=== PATIENT | female | born 1975 | race Caucasian/White ===

== ENCOUNTER 2020-08-24 10:32 | Emergency (ER) | payer MEDICAID, SELFPAY ==
[2020-08-24 19:22] VITALS: BP 000/00; PULSE 0; RESP 0; TEMP -17.7; TEMP 0; O2SAT 0
== END 2020-08-24 20:41 | disposition home or self-care (01) ==
LOC: UTC 10:36
PROVIDERS: Emergency Provider Nurse Practitioner; PCP Internal Medicine
DX: Z53.21 Procedure and treatment not carried out due to patient leaving prior to being seen by health care provider (principal); M25.562 Pain in left knee

== ENCOUNTER 2021-08-13 14:21 | Emergency (ER) | payer MEDICAID, SELFPAY ==
[2021-08-13 15:00] VITALS: BP 147/83; PULSE 95; RESP 18; TEMP 36.8; O2SAT 98; BMI 21.6
--- NOTE | 2021-08-13 15:48 | HMH.EDUTC ---
[facility] [place] Disposition Clinical Impression: Facial cellulitis Disposition: Home, Self-Care Condition on Discharge: Good Instructions: Cellulitis Additional Instructions: Keep the affected area clean and dry. Follow up with your regular doctor. Take the antibiotics as directed and apply the topical antibiotics as directed. Apply warm wet compresses to the affected area three or four times per day. GO TO THE ER FOR ANY WORSENING SYMPTOMS Follow up with your primary care physician in 3 days for a recheck and to go over the culture report from the swab we took today. The culture may tell what bacteria is causing this and you may be able to stop one of the antibiotics. Prescriptions: Sulfamethoxazole/Trimethoprim [Bactrim DS tablet] 1 each PO BID 10 Days #20 tab Transmission Status: Received by [facility] Mupirocin [Bactroban 2% Ointment 22gm tube] 1 applicatio TP TID 7 Days #1 gm Transmission Status: Received by [facility] cephALEXin [cephALEXin 500mg capsule] 500 mg PO Q6H 10 Days #40 cap Transmission Status: Received by [facility] Referrals: Clifford Reynolds MD [Primary Care Provider] - Time of Disposition: 16:39 Medical Decision Making - Medical Records Medical records reviewed: No: I reviewed the patient's medical records. - Mike Inquiry Pt receiving controlled substance: No Vital Signs: 08/13/21 15:00 08/13/21 16:24 Temperature 98.3 F 98.3 F Temperature Source Oral Pulse Rate 95 H Pulse Rate [Right Brachial] 95 H Respiratory Rate 18 18 Blood Pressure 147/83 H Blood Pressure [Right Arm] 147/83 H Blood Pressure Mean [Right Arm] 104 Blood Pressure Source [Right Arm] Automatic Cuff Blood Pressure Position [Right Arm] Sitting 02 Sat by Pulse Oximetry 98 Oxygen Delivery Method Room Air - Lab Data Lab results reviewed: Yes: I reviewed the patient's lab results. Orders (Tests/Meds): ED MEDICATIONS Discontinued Medications Generic Name Dose Route Start Last Admin Trade Name Freq PRN Reason Stop Dose Admin Ceftriaxone Sodium 1 gm 08/13/21 16:17 08/13/21 16:20 Ceftriaxone 1gm Vial IM 08/13/21 16:18 1 gm ONCE ONE Administration Lidocaine HCl 0 ml 08/13/21 16:17 08/13/21 16:20 Lidocaine 1% 5ml Pf Vial IM 08/13/21 16:18 2 ml ONCE ONE Administration Methylprednisolone Sodium Succinate 125 mg 08/13/21 16:17 08/13/21 16:20 Methylprednisolone Sod Succ 125mg Vial IM 08/13/21 16:18 125 mg ONCE ONE Administration ORDERS Category Date Time Status Wound Culture and Gram Stain Stat Micro 08/12/21 17:00 Results [facility] HPI - General Stated complaint: bite on forehead Time Seen by Provider: 08/13/21 15:49 Mode of Arrival: Ambulatory Source of Information: Patient Limitations: No Limitations Description of Symptoms (Recalled from Triage Doc. by RN): PATIENT C/O BUG BITE TO FOREHEAD WITH DRAINAGE AND REDNESS AROUND THE AREA HEENT Symptoms (Recalled from RN notes): Yes Resp Symptoms (Recalled from RN notes): No Skin Symptoms (Recalled from RN notes): Yes MS Symptoms (Recalled from RN notes): No Functional Status (Recalled from RN notes): WNL - History of Present Illness Provider Complaint: She states that since this morning she has had a red tender area on her forehead. She denies any injury. She states that last night she noticed she had a small place and she thought she was getting a pimple. Today, it is much worse. She denies any fever or chills. - Related Data Previous Rx's Medication Instructions Recorded Mupirocin [Bactroban 2% Ointment 1 applicatio TP TID 7 Days #1 gm 08/13/21 22gm tube] Sulfamethoxazole/Trimethoprim 1 each PO BID 10 Days #20 tab 08/13/21 [Bactrim DS tablet] cephALEXin [cephALEXin 500mg 500 mg PO Q6H 10 Days #40 cap 08/13/21 capsule] Allergies Allergy/AdvReac Type Severity Reaction Status Date / Time No Known Allergies Allergy Verified 05/13/19 11:41
[2021-08-13 16:24] VITALS: BP 147/83; PULSE 95; RESP 18; TEMP 36.8; O2SAT 98
== END 2021-08-13 16:44 | disposition home or self-care (01) ==
PROVIDERS: Emergency Provider Nurse Practitioner Family; PCP Internal Medicine
DX: L03.211 Cellulitis of face (principal)
CPT/HCPCS: 87070; 87077; 87186; 87205; 96372; 99202; G0463

== ENCOUNTER 2021-08-15 09:21 | Emergency (ER) | payer MEDICAID, SELFPAY ==
[2021-08-15 09:25] VITALS: BP 128/84; PULSE 78; RESP 16; TEMP 36.9; O2SAT 98; BMI 23.6
--- NOTE | 2021-08-15 10:15 | HMH.EDUTC ---
[facility] [place] Clinical Impression: Allergic reaction Qualifiers: Encounter type: initial encounter Qualified Code(s): T78.40XA - Allergy, unspecified, initial encounter Disposition: Home, Self-Care Condition on Discharge: Good Additional Instructions: Stop taking the other antibiotics as we are unsure if you may be allergic to one of them Follow up with your Family Doctor if no improvement or any worsening of symptoms Return if needed Straight to ER if any life threatening symptoms Go straight to ER if cellulitis worsens or spreads or worsens Prescriptions: clindamycin HCL [Clindamycin HCl] 300 mg PO Q8H 10 Days #30 cap Transmission Status: Received by [id number] Referrals: Clifford Reynolds MD [Primary Care Provider] - As needed Time of Disposition: 10:58 Medical Decision Making - Mike Inquiry Pt receiving controlled substance: No Mike was queried for this patient: No Vital Signs: 08/15/21 09:25 08/15/21 10:39 Temperature 98.4 F 98.4 F Temperature Source Oral Pulse Rate 78 Pulse Rate [Right Brachial] 78 Respiratory Rate 16 16 Blood Pressure 128/84 Blood Pressure [Right Arm] 128/84 Blood Pressure Mean [Right Arm] 98 Blood Pressure Source [Right Arm] Automatic Cuff Blood Pressure Position [Right Arm] Sitting 02 Sat by Pulse Oximetry 98 Oxygen Delivery Method Room Air Orders (Tests/Meds): ED MEDICATIONS Discontinued Medications Generic Name Dose Route Start Last Admin Trade Name Freq PRN Reason Stop Dose Admin Famotidine 20 mg 08/15/21 10:19 08/15/21 10:32 Famotidine 20mg Tablet PO 08/15/21 10:20 20 mg ONCE ONE Administration Loratadine 10 mg 08/15/21 10:20 08/15/21 10:30 Loratadine 10mg Tablet PO 08/15/21 10:21 10 mg ONCE ONE Administration Methylprednisolone Sodium Succinate 125 mg 08/15/21 10:19 08/15/21 10:32 Methylprednisolone Sod Succ 125mg Vial IM 08/15/21 10:20 125 mg ONCE ONE Administration Medical Decision Narrative: Swelling noted around eyes and in cheek areas with urticaria like welps noted on eyelids Swelling in forehead much improved but due to patient unable to distinguish if it was the antibiotics or her touching her face with cleaning solution on hands will change medication to Clindamycin and have her follow up with PCP or straight to ER if no improvement Redness and swelling in eyes much improved after medication, medication discussed with pharmacy and will stop the bactrim and cephalexin and start her on Clindamycin [facility] [place] - General Stated complaint: bilateral eye swelling Time Seen by Provider: 08/15/21 10:15 Mode of Arrival: Ambulatory Source of Information: Patient Limitations: No Limitations Description of Symptoms (Recalled from Triage Doc. by RN): PATIENT C/O SWELLING TO EYES AND NOSE X 3 DAYS. HAS BEEN ON CEPHALEXIN AND BACTRIM SINCE MONDAY FOR CELLULITIS HEENT Symptoms (Recalled from RN notes): Yes Resp Symptoms (Recalled from RN notes): No Skin Symptoms (Recalled from RN notes): No MS Symptoms (Recalled from RN notes): No Functional Status (Recalled from RN notes): WNL - History of Present Illness Provider Complaint: Patient states that she was seen on Monday due to cellulitis from bug bite on her forehead States that she was given a couple shots and started on oral antibiotics and it looked much better yesterday States that she was cleaning and took her antibiotics and her face was itching and she noticed she was having welps on her face and on her eyelids States that she took Benadryl and it helped with the itching but still having welps and swelling States that she thinks she is having an allergic reaction to something - Related Data Previous Rx's Medication Instructions Recorded Mupirocin [Bactroban 2% Ointment 1 applicatio TP TID 7 Days #1 gm 08/13/21 22gm tube] Sulfamethoxazole/Trimethoprim 1 each PO BID 10 Days #20 tab 08/13/21 [Bactrim DS tablet] cephALEXin [cephALEXin
[2021-08-15 10:39] VITALS: BP 128/84; PULSE 78; RESP 16; TEMP 36.9; O2SAT 98
== END 2021-08-15 11:03 | disposition home or self-care (01) ==
PROVIDERS: Emergency Provider Nurse Practitioner; PCP Internal Medicine
DX: T78.40XA Allergy, unspecified, initial encounter (principal); L03.211 Cellulitis of face
CPT/HCPCS: 96372; 99202; G0463

== ENCOUNTER 2021-09-19 11:14 | Emergency (ER) | payer MEDICAID, SELFPAY ==
[2021-09-19 13:22] VITALS: BP 126/81; PULSE 74; RESP 18; TEMP 36.7; O2SAT 99; BMI 21.9
[2021-09-19 13:27] LABS: Apearance,Urine Turbid (Clear); Color,Urine Dark Yellow (Yellow)
[2021-09-19 13:28] LABS: Bilirubin,Urine Negative (Negative); Blood, Urine 3+ (Negative); Glucose,Urine (UA) Negative (Negative); Ketones,Urine Negative (Negative); Protein,Urine 2+ (Negative); Specific Gravity, Urine 1.025 (1.005-1.030); UTC Leukocyte Esterase,Urine 1+ (Negative); UTC Nitrate,Urine Negative (Negative); Urobilinogen,Urine 1 EU/dl (0.2)
--- NOTE | 2021-09-19 13:55 | HMH.EDUTC ---
[facility] [place] Disposition Clinical Impression: UTI (urinary tract infection) Qualifiers: Urinary tract infection type: site unspecified Hematuria presence: with hematuria Qualified Code(s): N39.0 - Urinary tract infection, site not specified; R31.9 - Hematuria, unspecified Disposition: Home, Self-Care Condition on Discharge: Good Instructions: Urinary Tract Infection, DI for Urinary Tract Infection (UTI), Phenazopyridine Additional Instructions: Drink plenty of fluids. Take tylenol or ibuprofen for pain or fever. Take the medications as directed. Follow up with your regular doctor. GO TO THE ER FOR ANY WORSENING SYMPTOMS The pyridium will make your urine turn orange, this is an expected side effect. It will stain your clothes if it comes into contact with them. Prescriptions: Ondansetron [Zofran 4mg ODT] 4 mg PO Q8HP PRN #20 tab PRN Reason: Nausea Transmission Status: Pending to [facility] Nitrofurantoin Monohyd/M-Cryst [Macrobid 100 mg Capsule] 100 mg PO BID 5 Days #10 cap Transmission Status: Pending to [facility] Phenazopyridine HCl [Pyridium 200mg Tablet] 200 pow PO TID #6 tab Transmission Status: Pending to [facility] Referrals: Bear Olivares MD [Primary Care Provider] - Time of Disposition: 13:59 Medical Decision Making - Medical Records Medical records reviewed: No: I reviewed the patient's medical records. - Mike Inquiry Pt receiving controlled substance: No Vital Signs: 09/19/21 13:22 Temperature 98.1 F Temperature Source Oral Pulse Rate [Left] 74 Respiratory Rate 18 Blood Pressure [Right Arm] 126/81 Blood Pressure Mean [Right Arm] 96 02 Sat by Pulse Oximetry 99 - Lab Data Lab results reviewed: Yes: I reviewed the patient's lab results. Lab Results 09/19/21 13:26: Urine Color Dark yellow, Urine Appearance Turbid, Urine pH 7.0, Ur Specific [place] 1.025, Urine Protein 2+, Urine Glucose (UA) Negative, Urine Ketones Negative, Urine Blood 3+, Urine Nitrate Negative, Urine Bilirubin Negative, Urine Urobilinogen 1, Ur Leukocyte Esterase 1+ A Orders (Tests/Meds): ORDERS Category Date Time Status Urine Culture Stat Micro 09/19/21 13:26 Ordered [facility] [place] HPI - General Stated complaint: painful urniation Time Seen by Provider: 09/19/21 13:55 Mode of Arrival: Ambulatory Source of Information: Patient Limitations: No Limitations Description of Symptoms (Recalled from Triage Doc. by RN): pt c/o burning with urination since today. HEENT Symptoms (Recalled from RN notes): No Resp Symptoms (Recalled from RN notes): No Skin Symptoms (Recalled from RN notes): No MS Symptoms (Recalled from RN notes): No Functional Status (Recalled from RN notes): wnl - History of Present Illness Provider Complaint: She states that she has been having dysuria, urinary frequency and urgency since yesterday. She denies any fever or chills. She does get uti's occasionally and that is what she feels like is going on now. - Related Data Previous Rx's Medication Instructions Recorded Mupirocin [Bactroban 2% Ointment 1 applicatio TP TID 7 Days #1 gm 08/13/21 22gm tube] Sulfamethoxazole/Trimethoprim 1 each PO BID 10 Days #20 tab 08/13/21 [Bactrim DS tablet] cephALEXin [cephALEXin 500mg 500 mg PO Q6H 10 Days #40 cap 08/13/21 capsule] clindamycin HCL [Clindamycin HCl] 300 mg PO Q8H 10 Days #30 cap 08/15/21 Nitrofurantoin Monohyd/M-Cryst 100 mg PO BID 5 Days #10 cap 09/19/21 [Macrobid 100 mg Capsule] Ondansetron [Zofran 4mg ODT] 4 mg PO Q8HP PRN #20 tab 09/19/21 Phenazopyridine HCl [Pyridium 200 pow PO TID #6 tab 09/19/21 200mg Tablet] Allergies Allergy/AdvReac Type Severity Reaction Status Date / Time No Known Allergies Allergy Verified 05/13/19 11:41 - Worker's Comp Is this a Worker's Comp case?: No [facility] History - Hepatitis A Screen Drug use history?: No High risk sexual behaviors?: No History of
[2021-09-19 14:19] VITALS: BP 126/81; PULSE 74; RESP 18; TEMP 36.7
== END 2021-09-19 14:20 | disposition home or self-care (01) ==
PROVIDERS: Emergency Provider Nurse Practitioner Family; PCP Internal Medicine Adolescent Medicine
DX: N30.01 Acute cystitis with hematuria (principal); B96.20 Unspecified Escherichia coli [E. coli] as the cause of diseases classified elsewhere
CPT/HCPCS: 81003; 87086; 87088; 87186; 99202; G0463

== ENCOUNTER → 2021-09-21 10:45 | Outpatient (CLI) | payer MEDICAID, SELFPAY ==
[2021-09-21 11:37] LABS: Basophils # 0.1 K/mm3 (0-0.2); Basophils % 0.9 % (0.1-2.0); Eosinophils # 0.1 K/mm3 (0.0-0.4); Eosinophils % 0.7 % (0.1-12.0); Hematocrit 45.5 % (37.0-47.0); Hemoglobin 14.8 g/dL (12.2-16.2); Lymphocytes # 2.1 K/mm3 (0.7-4.5); Lymphocytes % 32.4 % (10-50); Mean Corpuscular HGB Conc 32.6 g/dL (31.8-35.4); Mean Corpuscular Hemoglobin 30.6 pg (27.0-31.2); Mean Corpuscular Volume 93.9 fl (81-99); Mean Platelet Volume 9.9 fl (7.4-10.4); Monocytes # 0.3 K/mm3 (0.1-1.0); Neutrophils # 3.9 K/mm3 (1.8-7.8); Neutrophils % 60.9 % (37.0-80.0); Platelet Count 226 K/mm3 (142-424); Red Blood Count 4.84 M/mm3 (4.20-5.40); Red Cell Distribution Width 12.9 % (11.5-17.5); White Blood Count 6.4 K/mm3 (4.8-10.8)
[2021-09-21 12:21] LABS: 25-OH Vitamin D, Total 59.1 ng/mL (30-100)
[2021-09-21 12:33] LABS: Thyroid Stimulating Hormone 1.71 uIU/mL (0.465-4.68)
[2021-09-21 12:52] LABS: Vitamin B12 252 pg/mL (239-931)
[2021-09-22 08:37] LABS: FSH 14.2 mIU/mL (.)
== END ==
DX: N95.1 Menopausal and female climacteric states (principal)
CPT/HCPCS: 36415; 82306; 82607; 83001; 84443; 85025

== ENCOUNTER → 2021-10-21 12:39 | Outpatient (CLI) | payer MEDICAID, SELFPAY | PROVIDERS: Visit Provider Nurse Practitioner Family | DX: R30.0 Dysuria (principal); B96.20 Unspecified Escherichia coli [E. coli] as the cause of diseases classified elsewhere | CPT/HCPCS: 87086; 87088; 87186 ==

== ENCOUNTER 2024-07-07 22:53 | Emergency (ER) | payer MEDICAID, SELFPAY ==
[2024-07-07 23:01] VITALS: BP 139/90; PULSE 95; RESP 20; TEMP 36.9; O2SAT 100; BMI 19.1
--- NOTE | 2024-07-07 23:14 | XR_ITS ---
PROCEDURE INFORMATION: Exam: XR Left Knee Exam date and time: 07/07/2024 11:13 PM Age: 48 years old Clinical indication: Injury or trauma; Fall; Patella or knee; Left; Severity of dislocation not specified; Additional info: Knee injury, swelling TECHNIQUE: Imaging protocol: Radiologic exam of the left knee. Views: 3 views. COMPARISON: CR XR PATELLA LT 2V 07/07/2024 11:13 PM FINDINGS: Bones/joints: There is a large joint effusion. There is patella [place]. No acute fracture or dislocation is identified. Soft tissues: Normal. IMPRESSION: There is a large joint effusion.
--- NOTE | 2024-07-07 23:14 | XR_ITS ---
PROCEDURE INFORMATION: Exam: XR Left Knee Exam date and time: 07/07/2024 11:13 PM Age: 48 years old Clinical indication: Injury or trauma; Fall; Patella or knee; Left; Severity of dislocation not specified; Additional info: Patellar disocation, reduced TECHNIQUE: Imaging protocol: Radiologic exam of the left knee. Views: 1 or 2 views. COMPARISON: CR XR KNEE LT 3V 07/07/2024 11:13 PM FINDINGS: Bones/joints: There is patella [place] without a discrete fracture identified. Soft tissues: Normal. IMPRESSION: There is patella [place] without a discrete fracture identified.
--- NOTE | 2024-07-07 23:16 | HMH.EDGENADL ---
Discharge Plan Disposition Patient Disposition: Home, Self-Care Prescriptions Prescriptions: No Action sulfamethoxazole-trimethoprim 1 EACH tablet 1 each PO BID 10 Days Qty: 20 0RF cephalexin 500 MG capsule 500 mg PO Q6H 10 Days Qty: 40 0RF mupirocin 22 GM ointment 1 applicatio TP TID 7 Days Qty: 1 0RF phenazopyridine 200 MG tablet 200 pow PO TID Qty: 6 0RF ondansetron 4 MG tablet,disintegrating 4 mg PO Q8HP PRN (Reason: Nausea) Qty: 20 0RF nitrofurantoin monohyd/m-cryst 100 MG capsule 100 mg PO BID 5 Days Qty: 10 0RF phenazopyridine [Pyridium] 200 mg tablet 200 mg PO Q8H 2 Days Qty: 6 0RF ondansetron 4 mg Tablet,Disintegrating 4 mg PO Q8H PRN (Reason: Nausea) Qty: 10 0RF nitrofurantoin monohyd/m-cryst [Macrobid] 100 mg Capsule 100 mg PO BID Qty: 10 0RF Rx Instructions: must administer with a meal/food clindamycin HCl 300 MG capsule 300 mg PO Q8H 10 Days Qty: 30 0RF Referrals Follow up/Referrals: Gilles Nolen DO [Staff Physician] - See instructions Bear Olivares MD [Primary Care Provider] - See instructions Activity Restrictions/Add. Instructions Additional Instructions/Restrictions: Please follow-up with your primary care provider and with our orthopedist. Recommend keeping the knee immobilizer in place until follow-up to help prevent further dislocation. please return to the emergency department if you develop any new or worsening symptoms or become concerned for your health. Clinical Impressions Clinical Impression: Effusion of knee joint, left, Knee strain Closed dislocation of left patella Qualifiers: Encounter type: initial encounter Qualified Code(s): S83.005A - Unspecified dislocation of left patella, initial encounter Stand Alone Forms Stand Alone Forms: Work/School Release Print Language Print Language: Czech Discharge ED Provider: Rocael Cardenas Adult HPI General Chief complaint: Extremity Injury, Lower Stated complaint: AO 10-20 left knee pain Time Seen by Provider: 07/07/24 23:00 Mode of Arrival: Ambulatory Source of Information: Patient Limitations: No Limitations Description of Symptoms (Recalled from ER Triage Doc. by RN): Pt ambulated to ED with cc of left knee pain. Pt states she dislocated the knee and can not pop it back in place. Pt states she has dislocated it before but normally doesn't have pain. Pt states she was playing with kids when she twisted her knee. Pt states the pain is 8 out of 10. History of Present Illness HPI narrative: 48-year-old female with history of prior patellar dislocations presents with patellar dislocation. She reports that it dislocated laterally this time which is abnormal for her. She reports that she was roughhousing with her children. She reports that she popped back in and was able to bear weight afterwards. She has since developed more significant knee swelling that she normally does and it hurts to move the knee. She is concerned that something else could be going on. Related Data Previous Rx's ?Medication ?Instructions ?Recorded cephalexin 500 mg capsule 500 mg PO Q6H 10 days #40 caps 08/13/21 mupirocin 2 % topical ointment 1 applicatio TP TID 7 days ##1 08/13/21 sulfamethoxazole 800 1 each PO BID 10 days #20 tabs 08/13/21 mg-trimethoprim 160 mg tablet clindamycin HCl 300 mg capsule 300 mg PO Q8H 10 days #30 caps 08/15/21 nitrofurantoin 100 mg PO BID 5 days #10 caps 09/19/21 monohydrate/macrocrystals 100 mg capsule ondansetron 4 mg disintegrating 4 mg PO Q8HP PRN Nausea #20 tabs 09/19/21 tablet phenazopyridine 200 mg tablet 200 pow PO TID #6 tabs 09/19/21 nitrofurantoin 100 mg PO BID #10 caps 05/20/24 monohydrate/macrocrystals 100 mg capsule (Macrobid) ondansetron 4 mg disintegrating 4 mg PO Q8H PRN Nausea #10 tabs 05/20/24 tablet phenazopyridine 200 mg tablet 200 mg PO Q8H 2 days #6 tabs 05/20/24 (Pyridium) Allergies Allergy/AdvReac Type Severity Reaction Status Date / Time No Known Allergies Allergy Verified 05/20/24 10:43 [facility] Disclaimer: The information contained in this section may have been updated after the patient was seen, as this information can be updated by other users. Social History Smoking Status: Never smoker alcohol intake: never current occupational status: employed Travel in the last 8 weeks: None ROS Obtained: Yes All systems reviewed & no additional complaints except as documented Physical Exam General General appearance: alert and in no apparent distress Head Head exam: atraumatic and normocephalic Eye Eye exam: Present normal appearance, PERRL and EOMI ENT ENT exam: Present normal oropharynx and normal external ear exam Neck Neck exam: Present normal inspection and full ROM Chest Chest inspection: Present normal inspection and symmetric chest wall rise; Absent tenderness Respiratory Respiratory exam: Present normal lung sounds bilaterally; Absent respiratory distress Cardiovascular Cardiovascular exam: Present regular rate and normal rhythm Abdominal Exam Abdominal exam: Present soft; Absent distention, tenderness or guarding Extremities Exam Extremities exam: Present joint swelling (Moderate left knee effusion, patellar is appropriately located, quadriceps and patellar tendon intact, pain with range of motion of the knee. Distal neurovascular status normal.); Absent edema Back Exam Back exam: Present normal inspection; Absent tenderness Neurological Exam Neurological exam: Present alert and oriented X3; Absent motor sensory deficit Psychiatric Psychiatric exam: Present normal affect and normal mood Skin Skin exam: Present warm, dry and normal color Lymphatic Lymphatic Findings: no adenopathy Medical Decision Making Medical Records Medical records reviewed: Yes I reviewed the patient's medical records. Screening: Per USPSTF and CDC recommendations, given the prevalence of disease in our region, it is our hospital?s policy to screen for HIV and viral Hepatitis for all patients aged 18 and over and those with ongoing risk factors. Mike Inquiry Pt receiving controlled substance: No Mike was queried for this patient: No Vital Signs: 07/07/24 23:01 07/08/24 01:41 Temperature 98.4 F 98.4 F Temperature Source Oral Oral Pulse Rate 75 Pulse Rate [Left Radial] 95 H Respiratory Rate 20 20 Blood Pressure 107/78 L Blood Pressure [Right Arm] 139/90 Blood Pressure Mean [Right Arm] 106 Blood Pressure Source Automatic Cuff Blood Pressure Source [Right Arm] Automatic Cuff Blood Pressure Position Sitting 02 Sat by Pulse Oximetry 100 Oxygen Delivery Method Room Air Room Air Lab Data Lab results reviewed: Yes I reviewed the patient's lab results. Orders (Tests/Meds): ED MEDICATIONS Discontinued Medications Generic Name Dose Route Start Last Admin Trade Name Freq PRN Reason Stop Dose Admin Acetaminophen 1,000 mg 07/07/24 23:16 07/07/24 23:31 Acetaminophen 500mg Tab PO 07/07/24 23:17 1,000 mg ONCE ONE Administration Ibuprofen 600 mg 07/07/24 23:16 07/07/24 23:31 Ibuprofen 600 Mg Tablet PO 07/07/24 23:17 600 mg ONCE ONE Administration ORDERS Category Date Time Status Knee XR left 3 views [XR knee LT 3V] Stat Exams 07/07/24 23:14 Completed Patella XR left 2 views [XR patella LT 2V] Stat Exams 07/07/24 23:14 Completed Medical Decision Narrative: 48-year-old female with history of patellar dislocations in the past presents with a left lateral patellar dislocation that she reduced prior to arrival. She is concerned about worsening swelling and pain in the knee. History was obtained via interactive discussion with patient, family. On arrival, patient is [afebrile, hemodynamically stable, satting appropriately, alert, oriented x4, GCS 15], moving all extremities spontaneously. Full physical exam performed and significant for left knee effusion, intact distal neurovascular exam, intact quadriceps and patellar tendon exam Differential includes but is not limited to fracture, dislocation, meniscal/ligamentous injury. Patient was given Tylenol and ibuprofen for symptomatic management and correction of underlying abnormalities. Workup initiated including radiographs of the left knee and patella. On re-evaluation, patient [remains afebrile, HD stable.] Imaging independently interpreted by me and significant for no apparent fracture or dislocation. It does show a large joint effusion and a somewhat high riding patella. See radiology read for full review of final results. Given patient history, exam and workup, patient's presentation most likely represents knee effusion from patellar dislocation. Patient was discharged in stable condition in a knee immobilizer with instructions to follow-up with Ortho. Procedures Risk/Benefits of Procedure(s) Were Explained: Yes Critical Care Critical Care Time Critical Care Time: No
[2024-07-07] MEDS: ACETAMINOPHEN 500MG TAB 1000 MG PO (23:31)
[2024-07-07] MEDS: IBUPROFEN 600 MG TABLET PO (23:31)
[2024-07-08 01:41] VITALS: BP 107/78; PULSE 75; RESP 20; TEMP 36.9; O2SAT 95
== END 2024-07-08 01:43 | disposition home or self-care (01) ==
PROVIDERS: Emergency Provider Emergency Medicine; PCP Internal Medicine Adolescent Medicine
DX: S83.005A Unspecified dislocation of left patella, initial encounter (principal); S86.919A Strain of unspecified muscle(s) and tendon(s) at lower leg level, unspecified leg, initial encounter; M25.562 Pain in left knee; M25.462 Effusion, left knee; X58.XXXA Exposure to other specified factors, initial encounter; Y93.9 Activity, unspecified; Y92.9 Unspecified place or not applicable
CPT/HCPCS: 73560; 73562; 99283